=== PATIENT | female | born 1990 | race Caucasian/White ===

== ENCOUNTER 2021-01-20 11:51 | Observation (INO) ==
[2021-01-20] MEDS ORDERED: ALBUTEROL 0.083% NEBU SOLN 3 ML VIAL NEB STA (12:19)
[2021-01-20] MEDS ORDERED: SODIUM CHLORIDE 0.9% 1000ML 1,000 ML IV ONE (12:19)
--- NOTE | 2021-01-20 12:24 | Emergency Department Note ---
Impression & Plan Pulmonary emboli, Shortness of breath, Chest pain ED Provider Note NAME: TRISHA CHAIDEZ AGE: 30 SEX: F : 1990 ARRIVES VIA: Walk-In INFORMANT: Patient ED PROVIDER(S): Kraig Salguero DO CHIEF COMPLAINT: shortness of breath HPI: Patient is a 30-year-old female who presents the ER following being exposed to 3 players that were Covid positive to 30 days ago. She notes her symptoms started this past Friday with a cough shortness of breath and congestion. It is a dry cough. She has a history of bronchitis. She was tested at urgent care initially with a rapid Covid and was retested with a PCR and a multi viral panel which was negative. She has been using steroids which have helped a little bit. She admits to a chest tightness which has been present for the past week. She notes this is improving. She is been using intermittent inhalers. No belly pain nausea vomiting or diarrhea. No dysuria urgency or frequency. She is fully vaccinated. Patient denies swelling of calves, recent trips, history of immobilization or recent surgery, prior history of DVT, hemoptysis, history of malignancy, history of smoking. She does use control. Patient denies diabetes, hypertension, hyperlipidemia, CAD, and history of sudden at a young age. ROS: See above HPI for pertinent positives & negatives. A total of 10 systems reviewed and were otherwise negative. PAST MEDICAL HISTORY:See Below PAST SURGICAL HISTORY:See Below FAMILY HISTORY:See Below SOCIAL HISTORY:See Below HOME MEDICATIONS:See Below ALLERGIES:See Below VITALS:See Below PHYSICAL EXAMINATION: GENERAL: Sitting up in bed, alert, well appearing, well nourished, no distress, non-toxic EYE EXAM: normal conjunctiva. OROPHARYNX: no exudate, no erythema, lips, buccal mucosa, and tongue normal and mucous membranes are moist NECK: supple, no nuchal rigidity, no adenopathy, non-tender LUNGS: Clear to auscultation. Normal chest wall mechanics HEART: no murmurs, S1 normal and S2 normal ABDOMEN: abdomen soft, non-tender, normo-active bowel sounds, no masses, no rebound or guarding. BACK: Back is symmetrical on inspection and there is no deformity, no midline tenderness, no CVA tenderness. SKIN: no rashes and no bruising UPPER EXTREMITIES: upper extremities are grossly normal. LOWER EXTREMITIES: No pitting edema. Calves are equal bilateral. NEURO EXAM: Normal sensorium, cranial nerves II-XII grossly intact, normal speech, no gross weakness of arms, no gross weakness of legs. MEDICAL DECISION MAKING: Patient is a 30-year-old female who presents the ER for shortness of breath with associated above complaints. IV was established blood work was obtained. Labs show mild leukocytosis of 12,000. No significant anemia. D-dimer was elevated 4000. BMP with slightly elevated chloride. LFTs bilirubin was unremarkable. Troponin was negative. Lipase was normal. Covid was negative. CT angio of the chest shows extensive PE. Ordered IV heparin drip. Discussed with Dr. Avila. He ordered an ultrasound and NOAC with thought of sending her home with a low PESI score. Her respiratory rate increased. Ultrasound did show a clot present. Elected to admit the patient. I ordered subcu Lovenox therapeutic dosing. She was updated bedside admitted for further work-up. Triage Nursing notes reviewed. Limited review of prior medical records performed Vital Signs: reviewed and remarkable for HTN Differential diagnosis: Differential diagnoses includes but is not limited to pneumonia, bronchitis, COPD/Asthma exacerbation, pneumothorax, pulmonary embolism, congestive heart failure, acute coronary syndrome ER treatment provided: See below Diagnostics interpreted by me: ECG: Sinus rhythm rate 91 Normal axis No PVCs QTC 435 Cardiac Monitoring: An order was placed for continuous cardiac monitoring. The monitor shows a rate of 95 with sinus rhythm. Laboratory studies: As stated above and show below. Imaging studies: CT angio showed large right-sided PEs Consultation(s): Discussed with Reinaldo Avila for further evaluation Procedures: none Critical Care: I have personally spent 32 minutes of critical care time in the direct management of this patient. This includes bedside care, interpretation of diagnostic studies, and testing, discussion with consultants, patient, and family members, and other required patient management activities. This 32 minutes is in excess of all separately billable procedures. Past Med/Surg History Social History Smoking Status: Never smoker Feels Safe at Home: Yes Allergies Allergies Allergy/AdvReac Type Severity Reaction Status Date / Time latex Allergy Intermediate Contact Unverified 01/20/21 13:49 dermatitis Home Meds Home Medications Medication Instructions Recorded Confirmed albuterol sulfate 90 mcg/actuation 2 puff INHALATION Q4H PRN 01/20/21 01/20/21 aerosol inhaler azithromycin 250 mg tablet 0 mg PO .COMPLEX 01/20/21 01/20/21 clonazepam 0.5 mg tablet 0.25 mg PO TID PRN 01/20/21 01/20/21 dextroamphetamine-amphetamine ER 20 mg PO QAM 01/20/21 01/20/21 20 mg 24hr capsule,extend release (Adderall XR) dextromethorphan-guaifenesin 30 1 tab PO Q12H PRN 01/20/21 01/20/21 mg-600 mg tablet extended [id number] hr (Mucinex DM) escitalopram oxalate 10 mg tablet 10 mg PO DAILY 01/20/21 01/20/21 (Lexapro) escitalopram oxalate 20 mg tablet 20 mg PO DAILY 01/20/21 01/20/21 (Lexapro) levonorgestrel 0.15 mg-ethinyl 1 tab PO DAILY 01/20/21 01/20/21 estradiol 30 mcg tablets,3 mos pack(91) levothyroxine 175 mcg tablet 175 mcg PO DAILY 01/20/21 01/20/21 (Synthroid) prednisone 10 mg tablets in a dose 10 - 40 mg PO DAILY 01/20/21 01/20/21 pack Results & Data (ED) Vital Signs Vital Signs - 24 hr 01/20/21 11:52 01/20/21 12:30 01/20/21 12:39 Pulse Rate 97 H 92 H Pulse Rate [Apical] Respiratory Rate 18 22 Respiratory Effort / Characteristics Non-Labored Respiratory Depth Normal Respiratory Pattern Regular Blood Pressure 150/102 H 133/96 Blood Pressure Mean 118 108 Pulse Oximetry 94 97 97 Oxygen Delivery Method Room Air Room Air Room Air Sepsis Recent Fever Within 48 Hours No Sepsis New/Unexplained Change in Mental Status No Sepsis Action Taken by Nursing No Action Required 01/20/21 12:55 01/20/21 13:00 01/20/21 13:30 Pulse Rate 93 H 94 H Pulse Rate [Apical] 91 H Respiratory Rate 18 20 22 Respiratory Effort / Characteristics Non-Labored Spontaneous Respiratory Depth Respiratory Pattern Blood Pressure 135/99 143/100 H Blood Pressure Mean 111 114 Pulse Oximetry 97 97 97 Oxygen Delivery Method Room Air Room Air Sepsis Recent Fever Within 48 Hours Sepsis New/Unexplained Change in Mental Status Sepsis Action Taken by Nursing 01/20/21 14:00 08/28/21 14:30 Pulse Rate 92 H 89 Pulse Rate [Apical] Respiratory Rate 20 24 Respiratory Effort / Characteristics Respiratory Depth Respiratory Pattern Blood Pressure 147/102 H 114/96 Blood Pressure Mean 117 102 Pulse Oximetry 97 99 Oxygen Delivery Method Room Air Sepsis Recent Fever Within 48 Hours Sepsis New/Unexplained Change in Mental Status Sepsis Action Taken by Nursing Laboratory Data Result diagrams: 01/20/21 12:32 01/20/21 12:32 Lab Results 01/20/21 01/20/21 01/20/21 Range/Units 12:32 12:32 12:32 WBC 12.45 H (4.8-10.8) K/uL RBC 4.79 (4.2-5.4) M/uL Hgb 13.5 (12.0-16.0) g/dL Hct 39.7 (37-47) % MCV 82.9 (80-100) fL MCH 28.2 (25-34) pg MCHC 34.0 (32-36) g/dL RDW Std Deviation 40.7 (36.4-46.3) fL RDW Coeff of Kj 13.4 (11.5-14.5) % Plt Count 231 (130-400) K/uL MPV 11.4 H (7.4-10.4) fL Immature Gran % (Auto) 0.5 % Neut % (Auto) 61.0 % Lymph % (Auto) 30.7 % [place] % (Auto) 4.9 % Eos % (Auto) 2.7 % Baso % (Auto) 0.2 % Neut # (Auto) 7.59 H (1.4-6.5) K/uL Lymph # (Auto) 3.82 H (1.2-3.4) K/uL [place] # (Auto) 0.61 H (0.11-0.59) K/uL Eos # (Auto) 0.34 (0-0.5) K/uL Baso # (Auto) 0.03 (0-0.2) K/uL Immature Gran # (Auto) 0.06 H (0.00-0.02) K/uL APTT 26.1 (21.0-31.0) Seconds PTT Ratio 1.0 D-Dimer 4000 H* (0-500) ug/L FEU Sodium 141 (136-145) mmol/L Potassium 3.5 (3.5-5.1) mmol/L Chloride 112 H (98-107) mmol/L Carbon Dioxide 22 (21-32) mmol/L Anion Gap 7.0 (3-11) BUN 15 (7-18) mg/dl Creatinine 0.65 (0.6-1.2) mg/dl Est Cr Clr Drug Dosing 188.0 ml/min Est GFR ( Amer) 136.2 ml/min Est GFR (Non-Af Amer) 117.5 ml/min BUN/Creatinine Ratio 23.3 H (10-20) Glucose 78 (70-99) mg/dl Calcium 8.3 L (8.5-10.1) mg/dl Total Bilirubin 0.3 (0.2-1) mg/dl AST 7 L (15-37) U/L ALT 18 (12-78) U/L Alkaline Phosphatase 54 (45-117) U/L Troponin I < 0.015 (0-0.045) ng/ml Total Protein 7.0 (6.4-8.2) gm/dl Albumin 3.1 L (3.4-5.0) gm/dl Globulin 3.9 (2.5-4.0) gm/dl Albumin/Globulin Ratio 0.8 L (0.9-2) Lipase 122 (73-393) U/L COVID-19 Eval Order SARS-CoV-2 (PCR) (Negative) 01/20/21 01/20/21 Range/Units 12:40 12:40 WBC (4.8-10.8) K/uL RBC (4.2-5.4) M/uL Hgb (12.0-16.0) g/dL Hct (37-47) % MCV (80-100) fL MCH (25-34) pg MCHC (32-36) g/dL RDW Std Deviation (36.4-46.3) fL RDW Coeff of Kj (11.5-14.5) % Plt Count (130-400) K/uL MPV (7.4-10.4) fL Immature Gran % (Auto) % Neut % (Auto) % Lymph % (Auto) % [place] % (Auto) % Eos % (Auto) % Baso % (Auto) % Neut # (Auto) (1.4-6.5) K/uL Lymph # (Auto) (1.2-3.4) K/uL [place] # (Auto) (0.11-0.59) K/uL Eos # (Auto) (0-0.5) K/uL Baso # (Auto) (0-0.2) K/uL Immature Gran # (Auto) (0.00-0.02) K/uL APTT (21.0-31.0) Seconds PTT Ratio D-Dimer (0-500) ug/L FEU Sodium (136-145) mmol/L Potassium (3.5-5.1) mmol/L Chloride (98-107) mmol/L Carbon Dioxide (21-32) mmol/L Anion Gap (3-11) BUN (7-18) mg/dl Creatinine (0.6-1.2) mg/dl Est Cr Clr Drug Dosing ml/min Est GFR ( Amer) ml/min Est GFR (Non-Af Amer) ml/min BUN/Creatinine Ratio (10-20) Glucose (70-99) mg/dl Calcium (8.5-10.1) mg/dl Total Bilirubin (0.2-1) mg/dl AST (15-37) U/L ALT (12-78) U/L Alkaline Phosphatase (45-117) U/L Troponin I (0-0.045) ng/ml Total Protein (6.4-8.2) gm/dl Albumin (3.4-5.0) gm/dl Globulin (2.5-4.0) gm/dl Albumin/Globulin Ratio (0.9-2) Lipase (73-393) U/L COVID-19 Eval Order Covid19 at [facility] SARS-CoV-2 (PCR) NEGATIVE (Negative) Administered Medications Discontinued Medications Albuterol (Albuterol 0.083% Nebu Soln 3 Ml Vial) 2.5 mg NEB NOW STA Stop: 01/20/21 12:20 Last Admin: 01/20/21 12:54 Dose: 2.5 mg Documented by: [id number] Heparin Sodium (Porcine) (Heparin Sod (Porcine) 1000 Unit/Ml) 1 units IV NOW ONE Stop: 01/20/21 15:08 Last Admin: 01/20/21 17:17 Dose: Not Given Documented by: [id number] Heparin Sodium/Dextrose (Heparin Iv Adult Wt-Based Standard With Bolus Protocol) 1 ea IV NOW STA; Protocol Stop: 01/20/21 14:53 Last Admin: 01/20/21 17:17 Dose: Not Given Documented by: [id number] Sodium Chloride (Nss 1000ml) 1,000 mls @ 999 mls/hr IV .Q1H1M ONE Stop: 01/20/21 13:19 Last Infusion: 01/20/21 13:51 Dose: 0 mls/hr Documented by: [id number] Admin: 01/20/21 12:40 Dose: 999 mls/hr Documented by: [id number] Heparin Sodium/Dextrose (Heparin Sodium/Dextrose) 25,000 units in 500 mls @ 34 mls/hr IV .[id number] [facility]; Protocol Stop: 02/19/21 15:14 Last Admin: 01/20/21 17:17 Dose: Not Given Documented by: [id number] Ioversol (Optiray 320 125ml) 120 ml IV ONCE ONE Stop: 01/20/21 13:55 Last Admin: 01/20/21 13:54 Dose: 120 ml Documented by: [id number] Imaging Data Radiologist's Impression: Chest X-Ray 01/20/21 12:19 SINGLE VIEW CHEST CLINICAL HISTORY: Atypical chest pain. FINDINGS: An AP, portable, upright chest radiograph is obtained. No prior studies are available for comparison at the time of dictation. The cardiomediastinal silhouette is unremarkable. The lungs and pleural spaces are clear. No pneumothorax is seen. The bony thorax is grossly intact. IMPRESSION: No active disease in the chest. ACT 112: Negative or not required by law. Electronically signed by: Deejay Zambrano M.D. 01/20/2021 1:18 PM Chest CTA 01/20/21 13:36 CT ANGIOGRAM OF THE CHEST CLINICAL HISTORY: Dyspnea. Elevated d-dimer. COMPARISON STUDY: Chest x-ray dated 01/20/2021. TECHNIQUE: Following the IV administration of 120 cc of Optiray 320, CT angiogram of the chest was performed from the upper abdomen to the thoracic inlet utilizing the pulmonary embolus protocol. Images are reviewed in the axial, sagittal, and coronal planes. 3-D MIPS images are created and assessed. IV contrast was administered without complication. A dose lowering technique w as utilized adhering to the principles of ALARA. CT DOSE: 844.89 mGy.cm FINDINGS: Thyroid: Imaged portions of the thyroid gland are normal in size and attenuation. Thoracic aorta: The thoracic aorta is normal in caliber and demonstrates standard 3-vessel arch anatomy. No dissection is seen. Pulmonary vasculature: The pulmonary trunk is normal in caliber. There is thro mbus within the distal right main pulmonary artery. This extends into the right upper, right middle, and right lower lobar pulmonary arteries. This is greatest in the right lower lobe where there is extensive segmental and subsegmental thrombus. There is pulmonary embolus within the left lower lobe pulmonary artery. This extends into segmental and subsegmental branches. Segmental and subsegmental pulmonary emboli are also seen within the left upper lobe and lingular pulmonary arteries. Heart: The heart is normal in size and without pericardial effusion. Lungs and pleural spaces: There is no airspace consolidation or pleural effusion. The trachea and central airways are clear. Mediastinum: There is no mediastinal lymphadenopathy. Jinny: Clear. Axillae: There is no axillary lymphadenopathy. Upper abdomen: There is a small hiatal hernia. Partially visualized upper abdominal viscera is otherwise within normal limits. Skeletal structures: No lytic or blastic bony lesions are seen. IMPRESSION: 1. Extensive bilateral pulmonary embolus as above. 2. There is no airspace consolidation or pleural effusion. ACT 112: Negative or not required by law. Electronically signed by: Deejay Zambrano M.D. 01/20/2021 3:18 PM Venous Doppler Study 01/20/21 15:15 ULTRASOUND BILATERAL LOWER EXTREMITY VENOUS CLINICAL HISTORY: Pulmonary embolus COMPARISON STUDY: No priors. TECHNIQUE: Real-time, grayscale, and color Doppler sonography of the deep veins of the right and left lower extremity was performed from the inguinal crease to the calf. Compression and augmentation were utilized. FINDINGS: Right lower extremity: There is nonocclusive and acute appearing deep venous thrombosis identified in the right popliteal vein. The common femoral and superficial femoral veins are patent and normally compressible. The greater saphenous vein and the profunda femoris vein at the junction with the common femoral vein are clear. The visualized calf veins are patent. Left lower extremity: There is no sonographic evidence of deep venous thrombosis in the left lower extremity. The common femoral, superficial femoral, and popliteal veins are patent and normally compressible. The greater saphenous vein and the profunda femoris vein at the junction with the common femoral vein are clear. The visualized calf veins are patent. IMPRESSION: 1. There is nonocclusive and acute appearing deep venous thrombosis identified in the right popliteal vein. 2. The remaining deep veins of the right lower extremity are patent and normally compressible. 3. There is no sonographic evidence of deep venous thrombosis in the left lower extremity. ACT 112: Negative or not required by law. Electronically signed by: Deejay Zambrano M.D. 01/20/2021 4:21 PM Discharge Plan Visit Data Chief Complaint: Shortness of Breath/Dyspnea Stated Complaint: COVID EXP/NEG COV/TEST FULLY VAXED/SOB ED Provider: Kraig Salguero Discharge Problem: Pulmonary emboli, Shortness of breath, Chest pain Forms Stand Alone Forms: [facility] Prescriptions Prescriptions: No Action levothyroxine [Synthroid] 175 mcg Tablet 175 mcg PO DAILY RF: 0 azithromycin 250 mg Tablet 0 mg PO .COMPLEX RF: 0 clonazepam 0.5 mg Tablet 0.25 mg PO TID PRN (Reason: Anxiety) RF: 0 prednisone 10 mg Tablets,Dose Pack 10 - 40 mg PO DAILY RF: 0 dextroamphetamine-amphetamine [Adderall XR] 20 mg Capsule,Extended Release 24hr 20 mg PO QAM RF: 0 Mucinex DM 30-600 mg Tablet Extended Release 12 Hr 1 tab PO Q12H PRN (Reason: Mucus Relief) RF: 0 albuterol sulfate 90 mcg/actuation Hfa Aerosol Inhaler 2 puff INHALATION Q4H PRN (Reason: Wheezing) RF: 0 escitalopram oxalate [Lexapro] 10 mg Tablet 10 mg PO DAILY RF: 0 escitalopram oxalate [Lexapro] 20 mg Tablet 20 mg PO DAILY RF: 0 levonorgestrel-ethinyl estrad [Seasonale (91)] 0.15 mg-30 mcg (91) Tablets,Dose Pack,3 Month 1 tab PO DAILY RF: 0 Referrals Referrals: PCP,NO [Primary Care Provider] -
[2021-01-20 12:52] LABS: Basophils # (auto) 0.03 K/uL (0-0.2); Basophils % (auto) 0.2 %; Eosinophils # (auto) 0.34 K/uL (0-0.5); Eosinophils % (auto) 2.7 %; Hematocrit (blood only) 39.7 % (37-47); Hemoglobin 13.5 g/dL (12.0-16.0); Immature Granulocytes # (auto) 0.06 K/uL (0.00-0.02); Immature Granulocytes % (auto) 0.5 %; Lymphocytes # (auto) 3.82 K/uL (1.2-3.4); Lymphocytes % (auto) 30.7 %; Mean Corpuscular Hemoglobin 28.2 pg (25-34); Mean Corpuscular Volume 82.9 fL (80-100); Mean Platelet Volume 11.4 fL (7.4-10.4); Monocytes # (auto) 0.61 K/uL (0.11-0.59); Monocytes % (auto) 4.9 %; Neutrophils # (auto) 7.59 K/uL (1.4-6.5); Platelet Count 231 K/uL (130-400); RDW Coefficient of Variation 13.4 % (11.5-14.5); RDW Standard Deviation 40.7 fL (36.4-46.3); Red Blood Count 4.79 M/uL (4.2-5.4); White Blood Count 12.45 K/uL (4.8-10.8)
[2021-01-20 13:01] LABS: Partial Thromboplastin Time 26.1 Seconds (21.0-31.0)
[2021-01-20 13:08] LABS: Alanine Aminotransferase 18 U/L (12-78); Albumin Level 3.1 gm/dl (3.4-5.0); Aspartate Aminotransferase 7 U/L (15-37); BUN Creatinine Ratio 23.3 (10-20); Blood Urea Nitrogen 15 mg/dl (7-18); Calcium 8.3 mg/dl (8.5-10.1); Carbon Dioxide 22 mmol/L (21-32); Chloride 112 mmol/L (98-107); Est GFR (African American) 136.2 ml/min; Est GFR (Non-African American) 117.5 ml/min; Glucose 78 mg/dl (70-99); Lipase 122 U/L (73-393); Potassium 3.5 mmol/L (3.5-5.1); Sodium 141 mmol/L (136-145)
[2021-01-20 13:13] LABS: Albumin Globulin Ratio 0.8 (0.9-2); Alkaline Phosphatase 54 U/L (45-117); Bilirubin,Total 0.3 mg/dl (0.2-1); D Dimer 4000 ug/L FEU (0-500); Globulin 3.9 gm/dl (2.5-4.0); Troponin I < 0.015 ng/ml (0-0.045)
--- NOTE | 2021-01-20 13:19 | XRay Report ---
SINGLE VIEW CHEST CLINICAL HISTORY: Atypical chest pain. FINDINGS: An AP, portable, upright chest radiograph is obtained. No prior studies are available for c omparison at the time of dictation. The cardiomediastinal silhouette is unremarkable. The lungs and p leural spaces are clear. No pneumothorax is seen. The bony thorax is grossly intact. IMPRESSION: No active disease in the chest. ACT 112: Negative or not required by law. Electronically signed by: Deejay Zambrano M.D. 01/20/2021 1:18 PM
[2021-01-20] MEDS ORDERED: OPTIRAY 320 125ml IV ONE (13:54)
[2021-01-20] MEDS ORDERED: Heparin IV Adult Wt-Based Standard WITH Bolus Protocol IV STA (14:52)
[2021-01-20] MEDS: HEPARIN SODIUM/DEXTROSE 25,000 UNITS/500 ML BAG IV SCH ×2 (15:11→17:17)
[2021-01-20] MEDS: HEPARIN SOD (PORCINE) 1000 UNIT/ML IV ONE ×2 (15:11→17:17)
--- NOTE | 2021-01-20 15:20 | CT Scan Report ---
CT ANGIOGRAM OF THE CHEST CLINICAL HISTORY: Dyspnea. Elevated d-dimer. COMPARISON STUDY: Chest x-ray dated 01/20/2021. TECHNIQUE: Following the IV administration of 120 cc of Optiray 320, CT angiogram of the chest was pe rformed from the upper abdomen to the thoracic inlet utilizing the pulmonary embolus protocol. Images are reviewed in the axial, sagittal, and coronal planes. 3-D MIPS images are created and assessed. I V contrast was administered without complication. A dose lowering technique was utilized adhering to the principles of ALARA. CT DOSE: 844.89 mGy.cm FINDINGS: Thyroid: Imaged portions of the thyroid gland are normal in size and attenuation. Thoracic aorta: The thoracic aorta is normal in caliber and demonstrates standard 3-vessel arch anato my. No dissection is seen. Pulmonary vasculature: The pulmonary trunk is normal in caliber. There is thrombus within the distal right main pulmonary artery. This extends into the right upper, right middle, and right lower lobar p ulmonary arteries. This is greatest in the right lower lobe where there is extensive segmental and hunter bsegmental thrombus. There is pulmonary embolus within the left lower lobe pulmonary artery. This ext ends into segmental and subsegmental branches. Segmental and subsegmental pulmonary emboli are also s een within the left upper lobe and lingular pulmonary arteries. Heart: The heart is normal in size and without pericardial effusion. Lungs and pleural spaces: There is no airspace consolidation or pleural effusion. The trachea and jp tral airways are clear. Mediastinum: There is no mediastinal lymphadenopathy. Jinny: Clear. Axillae: There is no axillary lymphadenopathy. Upper abdomen: There is a small hiatal hernia. Partially visualized upper abdominal viscera is otherw ise within normal limits. Skeletal structures: No lytic or blastic bony lesions are seen. IMPRESSION: 1. Extensive bilateral pulmonary embolus as above. 2. There is no airspace consolidation or pleural effusion. ACT 112: Negative or not required by law. Electronically signed by: Deejay Zambrano M.D. 01/20/2021 3:18 PM
--- NOTE | 2021-01-20 15:25 | Hospitalist Consultation ---
Date of Consultation January 20, 2021 Assessment & Plan (1) Pulmonary emboli: 30 y/o F hx hypothyroidism, hydradenitis, PTSD/depression, ADD, family history of hypercoagulable disorder. The pt reports SOB starting 6 days prior. She had exposure to COVID the prior week and thought she was developing COVID. She tested negative at an urgent care center. She is fully vaccinated. She presented to the ER as her shortness of breath persisted. She was not hypoxic or tachycardic, however, initial labs returned with a markedly elevated dimer. She again tested negative for COVID. She was sent for a CTA which demonstrated thrombus within the distal right main pulmonary artery, extending into the right upper, right middle, and right lower lobar pulmonary arteries. There is pulmonary embolus within the left lower lobe pulmonary artery extending into segmental and subsegmental branches. 1) PE - she will be placed on Lovenox. She can likely transition to Eliquis for DC AM. We would like to determine if she is desaturating with activity or sleep as she may need home 02. The pt does not meet PESI score for admission, however, her breathing is considerably labored, she has a substantial clot burden and stated that she was desaturating at home with activity throughout the week. She can pursue a hypoercoag workup in the outpt setting. She is advised to stop her both control which contains estrogen. 2) Hypothyroidism - cont Synthroid 3) PTSD/depression - cont Lexapro, Clonazepam 4) ADD - we can hold her amphetamine in the hospital Full code - full-dose Lovenox Total time for this admit including review of labs, meds, imaging, records - discussion with pt and ER attending - 45 min Please consider the above an admission note as the pt was ultimately admitted History of Present Illness Reason for Consultation: PE Requesting Physician: ER Attending Physician: Jose M History of Present Illness 30 y/o F hx hypothyroidism, hydradenitis, PTSD/depression, ADD, family history of hypercoagulable disorder. The pt reports SOB starting 6 days prior. She had exposure to COVID the prior week and thought she was developing COVID. She tested negative at an urgent care center. She is fully vaccinated. She presented to the ER as her shortness of breath persisted. She was not hypoxic or tachycardic, however, initial labs returned with a markedly elevated dimer. She again tested negative for COVID. She was sent for a CTA which demonstrated thrombus within the distal right main pulmonary artery, extending into the right upper, right middle, and right lower lobar pulmonary arteries. There is pulmonary embolus within the left lower lobe pulmonary artery extending into segmental and subsegmental branches. An EKG does not support strain. PMH: 1) Hypothyroidism 2) Hydradenitis 3) PTSD 4) Depression 5) ADD 6) Frequent bronchitis Surgical: Denies Social: Rarely drinks alcohol. 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 Family: Father due to alcoholism complications Mother has HTN, DM Paternal uncle and paternal grandfather with hypercoagulable disorder which are unidentified. Allergies Allergy/AdvReac Type Severity Reaction Status Date / Time latex Allergy Intermediate Contact Unverified 01/20/21 13:49 dermatitis Home Medications Medication Instructions Recorded Confirmed Type albuterol sulfate 90 mcg/actuation 2 puff INHALATION Q4H PRN 01/20/21 01/20/21 History aerosol inhaler azithromycin 250 mg tablet 0 mg PO .COMPLEX 01/20/21 01/20/21 History clonazepam 0.5 mg tablet 0.25 mg PO TID PRN 01/20/21 01/20/21 History dextroamphetamine-amphetamine ER 20 mg PO QAM 01/20/21 01/20/21 History 20 mg 24hr capsule,extend release (Adderall XR) dextromethorphan-guaifenesin 30 1 tab PO Q12H PRN 01/20/21 01/20/21 History mg-600 mg tablet extended [id number] hr (Mucinex DM) escitalopram oxalate 10 mg tablet 10 mg PO DAILY 01/20/21 01/20/21 History (Lexapro) escitalopram oxalate 20 mg tablet 20 mg PO DAILY 01/20/21 01/20/21 History (Lexapro) levonorgestrel 0.15 mg-ethinyl 1 tab PO DAILY 01/20/21 01/20/21 History estradiol 30 mcg tablets,3 mos pack(91) levothyroxine 175 mcg tablet 175 mcg PO DAILY 01/20/21 01/20/21 History (Synthroid) prednisone 10 mg tablets in a dose 10 - 40 mg PO DAILY 01/20/21 01/20/21 History pack Patient History Social History Smoking Status: Never smoker Feels Safe at Home: Yes Review of Systems Review of Systems: Gen: Denies fevers, night sweats, rigors, fatigue, malaise, weight loss/gain ENT: Denies congestion, throat pain, hearing loss Eyes: Denies acute visual changes CV: Denies CP, palpitations Pulmonary: Shortness of breath x 6 days GI: Denies N/V, diarrhea, constipation Neuro: Denies acute or unilateral weakness, acute gait impairment, headache or acute visual changes Musculoskeletal: Denies joint pain, inflammation Endocrine: Denies polydipsia, polyuria Skin: Denies acute rashes or ulcers Physical Exam Physical Exam: General: Pleasant, young F, AAO x 3, no distress but breathing is visibly labored ENT: No erythema or exudates, no thrush Eyes: NAKUL, EOMI Head and neck: Normocephalic, atraumatic, No JVD, neck is supple. Chest/heart: Nontender, S1,2, RRR, no murmurs, no gallops Lungs: CTAB, no wheezing or crackles Abdomen: Nontender, nondistended, BS+ Neuro: AAO x 3, speech is clear, no unilateral weakness or loss of sensation, coordination intact Musculoskeletal: No joint inflammation, muscle tenderness, FROM Skin: No acute rashes or ulcers Extremities: No clubbing, cyanosis, edema Results & Data Results & Data ([facility]) Vital Signs (Past 12 Hours) Vital Signs Pulse Pulse Resp BP Pulse Ox 01/20/21 14:30 89 24 114/96 99 01/20/21 14:00 92 H 20 147/102 H 97 01/20/21 13:30 94 H 22 143/100 H 97 01/20/21 13:00 93 H 20 135/99 97 01/20/21 12:55 91 H 18 97 01/20/21 12:39 92 H 22 133/96 97 01/20/21 12:30 97 01/20/21 11:52 97 H 18 150/102 H 94 Diagnostic Findings CTA: Thrombus within the distal right main pulmonary artery, extending into the right upper, right middle, and right lower lobar pulmonary arteries. There is pulmonary embolus within the left lower lobe pulmonary artery extending into segmental and subsegmental branches. Doppler: R popliteal DVT PG Care Time/CCT Total # of Minutes Spent Total Time Spent with Patient: Total time spent is greater than 50% in coordination of care (as documented) at patient's floor/unit and/or counseling patient: Coding Level of Care Code 75931 Inpt Consult Level 3 Diagnoses Pulmonary emboli I26.99
[2021-01-20] MEDS ORDERED: APIXABAN 5 MG TABLET PO STA (15:35)
--- NOTE | 2021-01-20 16:22 | Ultrasound Report ---
ULTRASOUND BILATERAL LOWER EXTREMITY VENOUS CLINICAL HISTORY: Pulmonary embolus COMPARISON STUDY: No priors. TECHNIQUE: Real-time, grayscale, and color Doppler sonography of the deep veins of the right and left lower extremity was performed from the inguinal crease to the calf. Compression and augmentation wer e utilized. FINDINGS: Right lower extremity: There is nonocclusive and acute appearing deep venous thrombosis identified in the right popliteal vein. The common femoral and superficial femoral veins are patent and normally c ompressible. The greater saphenous vein and the profunda femoris vein at the junction with the common femoral vein are clear. The visualized calf veins are patent. Left lower extremity: There is no sonographic evidence of deep venous thrombosis in the left lower ex tremity. The common femoral, superficial femoral, and popliteal veins are patent and normally tawny sible. The greater saphenous vein and the profunda femoris vein at the junction with the common femor al vein are clear. The visualized calf veins are patent. IMPRESSION: 1. There is nonocclusive and acute appearing deep venous thrombosis identified in the right popliteal vein. 2. The remaining deep veins of the right lower extremity are patent and normally compressible. 3. There is no sonographic evidence of deep venous thrombosis in the left lower extremity. ACT 112: Negative or not required by law. Electronically signed by: Deejay Zambrano M.D. 01/20/2021 4:21 PM
[2021-01-20] MEDS ORDERED: ENOXAPARIN 1 MG/KG SC STA (17:02)
[2021-01-20] MEDS ORDERED: ENOXAPARIN 150 MG/ML SYR SQ ONE (17:30)
[2021-01-20] MEDS ORDERED: clonazePAM 0.25 MG TAB PO PRN (18:59)
[2021-01-20] MEDS ORDERED: ALBUTEROL HFA 8 GM INHALER INH PRN (18:59)
[2021-01-20] MEDS ORDERED: ACETAMINOPHEN 325 MG TAB PO PRN (18:59)
[2021-01-21] MEDS: ENOXAPARIN 150 MG/ML SYR SQ SCH ×2 (06:23→16:55)
[2021-01-21] MEDS ORDERED: LEVOTHYROXINE SODIUM 175 MCG TABLET PO SCH (06:30)
[2021-01-21] MEDS ORDERED: ESCITALOPRAM OXALATE 10 MG TAB PO SCH (09:00)
[2021-01-21] MEDS ORDERED: ESCITALOPRAM OXALATE 20 MG TAB PO SCH (09:00)
[2021-01-21 09:35] LABS: Basophils # (auto) 0.05 K/uL (0-0.2); Basophils % (auto) 0.4 %; Eosinophils # (auto) 1.08 K/uL (0-0.5); Eosinophils % (auto) 9.3 %; Hematocrit (blood only) 43.1 % (37-47); Hemoglobin 14.6 g/dL (12.0-16.0); Immature Granulocytes # (auto) 0.06 K/uL (0.00-0.02); Immature Granulocytes % (auto) 0.5 %; Lymphocytes # (auto) 3.55 K/uL (1.2-3.4); Lymphocytes % (auto) 30.6 %; Mean Corpuscular Hemoglobin 28.5 pg (25-34); Mean Corpuscular Hgb Conc 33.9 g/dL (32-36); Mean Platelet Volume 11.4 fL (7.4-10.4); Monocytes # (auto) 0.45 K/uL (0.11-0.59); Monocytes % (auto) 3.9 %; Neutrophils % (auto) 55.3 %; Platelet Count 273 K/uL (130-400); RDW Coefficient of Variation 13.6 % (11.5-14.5); RDW Standard Deviation 41.5 fL (36.4-46.3); Red Blood Count 5.13 M/uL (4.2-5.4); White Blood Count 11.59 K/uL (4.8-10.8)
[2021-01-21 09:59] LABS: BUN Creatinine Ratio 12.6 (10-20); Calcium 9.1 mg/dl (8.5-10.1); Creatinine Clr Calc Pharmacy 135.1 ml/min; Est GFR (African American) 96.8 ml/min; Est GFR (Non-African American) 83.5 ml/min; Potassium 3.6 mmol/L (3.5-5.1)
[2021-01-21 10:10] LABS: Thyroid Stimulating Hormone 1.99 uIu/ml (0.300-4.500)
--- NOTE | 2021-01-21 16:56 | Discharge Summary ---
Date of Service January 21, 2021 Admission HPI Per Admitting Provider History of Present Illness 30 y/o F hx hypothyroidism, hydradenitis, PTSD/depression, ADD, family history of hypercoagulable disorder. The pt reports SOB starting 6 days prior. She had exposure to COVID the prior week and thought she was developing COVID. She tested negative at an urgent care center. She is fully vaccinated. She presented to the ER as her shortness of breath persisted. She was not hypoxic or tachycardic, however, initial labs returned with a markedly elevated dimer. She again tested negative for COVID. She was sent for a CTA which demonstrated thrombus within the distal right main pulmonary artery, extending into the right upper, right middle, and right lower lobar pulmonary arteries. There is pulmonary embolus within the left lower lobe pulmonary artery extending into segmental and subsegmental branches. An EKG does not support strain. PMH: 1) Hypothyroidism 2) Hydradenitis 3) PTSD 4) Depression 5) ADD 6) Frequent bronchitis Surgical: Denies Social: Rarely drinks alcohol. 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 Family: Father due to alcoholism complications Mother has HTN, DM Paternal uncle and paternal grandfather with hypercoagulable disorder which are unidentified. Principal Diagnosis Acute pulmonary embolism, DVT Discharge Exam Constitutional WD/WN, vitals as above + obese Eyes + anicteric sclerae ENMT external ear and nose normal, oropharynx normal Neck trachea midline, no thyromegaly Respiratory normal respiratory effort, lungs clear to auscultation Cardiovascular RRR, no murmur, no edema Chest (Breasts) Chest: normal inspection of chest Gastrointestinal (Abdomen) normal bowel sounds, soft, nontender, no hepatosplenomegaly Musculoskeletal Extremities: extremities normal to inspection; no cyanosis and no clubbing Skin no rashes, warm and dry Neurologic moves all extremities and awake; no focal motor deficits Psychiatric A+Ox3, euthymic affect Lymphatic no lymphedema Discharge Data Allergies Allergy/AdvReac Type Severity Reaction Status Date / Time latex Allergy Intermediate Contact Unverified 01/20/21 13:49 dermatitis Consultations 01/20/21 15:09 ED Decision to Admit Stat Ordered Studies 01/20/21 13:36 CT angio chest PE protocol Stat 01/20/21 15:15 US venous doppler LE BI Stat Chest X-Ray 01/20/21 12:19 SINGLE VIEW CHEST CLINICAL HISTORY: Atypical chest pain. FINDINGS: An AP, portable, upright chest radiograph is obtained. No prior studies are available for comparison at the time of dictation. The cardiomediastinal silhouette is unremarkable. The lungs and pleural spaces are clear. No pneumothorax is seen. The bony thorax is grossly intact. IMPRESSION: No active disease in the chest. ACT 112: Negative or not required by law. Electronically signed by: Deejay Zambrano M.D. 01/20/2021 1:18 PM Chest CTA 01/20/21 13:36 CT ANGIOGRAM OF THE CHEST CLINICAL HISTORY: Dyspnea. Elevated d-dimer. COMPARISON STUDY: Chest x-ray dated 01/20/2021. TECHNIQUE: Following the IV administration of 120 cc of Optiray 320, CT angiogram of the chest was performed from the upper abdomen to the thoracic inlet utilizing the pulmonary embolus protocol. Images are reviewed in the axial, sagittal, and coronal planes. 3-D MIPS images are created and assessed. IV contrast was administered without complication. A dose lowering technique was utilized adhering to the principles of ALARA. CT DOSE: 844.89 mGy.cm FINDINGS: Thyroid: Imaged portions of the thyroid gland are normal in size and attenua tion. Thoracic aorta: The thoracic aorta is normal in caliber and demonstrates standard 3-vessel arch anatomy. No dissection is seen. Pulmonary vasculature: The pulmonary trunk is normal in caliber. There is thrombus within the distal right main pulmonary artery. This extends into the right upper, right middle, and right lower lobar pulmonary arteries. This is greatest in the right lower lobe where there is extensive segmental and subsegmental thrombus. There is pulmonary embolus within the left lower lobe pulmonary artery. This extends into segmental and subsegmental branches. Segmental and subsegmental pulmonary emboli are also seen within the left upper lobe and lingular pulmonary arteries. Heart: The heart is normal in size and without pericardial effusion. Lungs and pleural spaces: There is no airspace consolidation or pleural effusion. The trachea and central airways are clear. Mediastinum: There is no mediastinal lymphadenopathy. Jinny: Clear. Axillae: There is no axillary lymphadenopathy. Upper abdomen: There is a small hiatal hernia. Partially visualized upper abdominal viscera is otherwise within normal limits. Skeletal structures: No lytic or blastic bony lesions are seen. IMPRESSION: 1. Extensive bilateral pulmonary embolus as above. 2. There is no airspace consolidation or pleural effusion. ACT 112: Negative or not required by law. Electronically signed by: Deeajy Zambrano M.D. 01/20/2021 3:18 PM Venous Doppler Study 01/20/21 15:15 ULTRASOUND BILATERAL LOWER EXTREMITY VENOUS CLINICAL HISTORY: Pulmonary embolus COMPARISON STUDY: No priors. TECHNIQUE: Real-time, grayscale, and color Doppler sonography of the deep veins of the right and left lower extremity was performed from the inguinal crease to the calf. Compression and augmentation were utilized. FINDINGS: Right lower extremity: There is nonocclusive and acute appearing deep venous thrombosis identified in the right popliteal vein. The common femoral and superficial femoral veins are patent and normally compressible. The greater saphenous vein and the profunda femoris vein at the junction with the common femoral vein are clear. The visualized calf veins are patent. Left lower extremity: There is no sonographic evidence of deep venous thrombosis in the left lower extremity. The common femoral, superficial femoral, and popliteal veins are patent and normally compressible. The greater saphenous vein and the profunda femoris vein at the junction with the common femoral vein are clear. The visualized calf veins are patent. IMPRESSION: 1. There is nonocclusive and acute appearing deep venous thrombosis identified in the right popliteal vein. 2. The remaining deep veins of the right lower extremity are patent and normally compressible. 3. There is no sonographic evidence of deep venous thrombosis in the left lower extremity. ACT 112: Negative or not required by law. Electronically signed by: Deejay Zambrano M.D. 01/20/2021 4:21 PM Hospital Course (1) Pulmonary emboli: 30 y/o F hx hypothyroidism, hydradenitis, PTSD/depression, ADD, family history of hypercoagulable disorder. The pt reports SOB starting 6 days prior. She had exposure to COVID the prior week and thought she was developing COVID. She tested negative at an urgent care center. She is fully vaccinated. She presented to the ER as her shortness of breath persisted. She was not hypoxic or tachycardic, however, initial labs returned with a markedly elevated dimer. She again tested negative for COVID. She was sent for a CTA which demonstrated thrombus within the distal right main pulmonary artery, extending into the right upper, right middle, and right lower lobar pulmonary arteries. There is pulmonary embolus within the left lower lobe pulmonary artery extending into segmental and subsegmental branches. She has been traveling a lot by car recently from [place] to the [facility] due to a recent move. Each round trip drive is approximately 5 hours. She is also taking combined OCPs and is obese. There is a family history of an unknown clotting disorder in her paternal Uncle and paternal grandfather. Her father suddenly at age 42 after a prolonged hospitalization for what sounds like multisystem organ failure, but also was a heavy EtOH abuser. She has numerous reasons for development of a VTE. Hypercoagulable panel drawn with exception of Antithrombin III and Lupus anticoag as she was already on Lovenox at time labs drawn. She was doing well, not hypoxic, not tachycardic, BPs stable, not dyspneic with ambulation at least of short distances in hospital at time of discharge. She will continue on injections bid of Lovenox upon discharge. She hsould remaon on Lovenox until hypercoag w/u returns. Eliquis contraindicated if has antiphospholipid antibody syndrome. COuld transition to ELiquis then if that is neg. Consider outpt f/u with [facility] to discuss hypercoag results and determine if needs 6 months of treatment vs lifelong anticoagulation. She is advised to stop her both control which contains estrogen. She does not require a backup method of contraception as she is not sexually active with men. She does however have a h/o menorrhagia-this could be treated with Mirena IUD even in setting of VTE. Recommend she f/u with [facility] closely for this as she may experience heavy bleeding with being on anticoagulation now regardless. Wear compression stockings with long car rides Stable for dc to home today (2) Acute DVT (deep venous thrombosis): as above, right popliteal DVT (3) Anxiety: - cont Lexapro, Clonazepam (4) ADD (attention deficit disorder): continue home meds (5) Obesity (BMI 30-39.9): BMI 39.3 would greatly benefit from weight loss program (6) Hypothyroidism: TSH here normal continue home SYnthroid (7) Family history of hypercoagulability: as above Dispo-dc to home Total Time Total Time Spent Total Time Spent (In Minutes): 40 min Discharge Plan Discharge Items Patient Disposition: Home - Self-Care Reason For Visit: PE Discharge Diagnosis: DVT/Pulmonary Embolism Condition on Discharge: Fair Activity: As commented below Bathing: No limitations Exercise/Sports: Gradually increase as tolerated Non-emergency contact: Primary Care Provider Call non-emergency contact if: you have any medication questions, your symptoms worsen and you have a fever Follow-up/Referrals: Oscar Mancia V., [Physician] - (If you desire hematology follow up, please schedule an appointment with Dr. Mancia.) Kimberly Pierre DO [Physician] - (Please call to schedule a new patient hospital follow up appointment.) PCP,NO [Primary Care Provider] - Diet: Regular Addtl Attending Provider Instructions: You were admitted and found to have blood clots in your lungs as well as a blood clot in your right leg. You will need to take blood thinners for at least 6 months. For now, you should take Lovenox injections twice daily. Once the results of your hypercoagulable workup return, there is a chance you could be transitioned to Eliquis instead (as long as you don't have antiphospholipid antibody syndrome) as we discussed. Please follow up with your new PCP to discuss all of your results once they become available. You should STOP taking your control pill, and use compression stockings when driving long distances. If you have any issues with bleeding i.e. coughing up blood, vomiting blood, blood in your stool or urine, or suffer a trauma and have bleeding, please come to the hospital right away. Pending Studies at Discharge: Yes Stand-Alone Forms: My [facility] Medications and DC Order Prescriptions: New enoxaparin [Lovenox] 150 mg/mL Syringe 130 mg subcut Q12H 14 Days Qty: 24.268 RF: 1 Continued levothyroxine [Synthroid] 175 mcg Tablet 175 mcg PO DAILY RF: 0 clonazepam 0.5 mg Tablet 0.25 mg PO TID PRN (Reason: Anxiety) RF: 0 dextroamphetamine-amphetamine [Adderall XR] 20 mg Capsule,Extended Release 24hr 20 mg PO QAM RF: 0 albuterol sulfate 90 mcg/actuation Hfa Aerosol Inhaler 2 puff INHALATION Q4H PRN (Reason: Wheezing) RF: 0 escitalopram oxalate [Lexapro] 10 mg Tablet 10 mg PO DAILY RF: 0 escitalopram oxalate [Lexapro] 20 mg Tablet 20 mg PO DAILY RF: 0 Discontinued azithromycin 250 mg Tablet 0 mg PO .COMPLEX RF: 0 prednisone 10 mg Tablets,Dose Pack 10 - 40 mg PO DAILY RF: 0 Mucinex DM 30-600 mg Tablet Extended Release 12 Hr 1 tab PO Q12H PRN (Reason: Mucus Relief) RF: 0 levonorgestrel-ethinyl estrad [Seasonale (91)] 0.15 mg-30 mcg (91) Tablets,Dose Pack,3 Month 1 tab PO DAILY RF: 0 Discharge Orders: Discharge Order (Routine); Ordered 01/21/21 Ordered By: Mary Smalls Admission Data Admit Date/Time: 01/20/21 17:55 Attending Provider: Mary Smalls Admit Provider: Reinaldo Avila Primary Care Provider: PCP,KATIE Other Providers: Reinaldo Avila Other Interventions: Discharge Summary Assessment (RN) Last Done: 01/21/21 17:11 Coding Level of Care Code D/C DAY MANAGEMENT >30 MINS Diagnoses Pulmonary emboli I26.99 Acute cor pulmonale presence: unspecified Chronicity: acute Pulmonary embolism type: other Anxiety F41.9 ADD (attention deficit disorder) F98.8 Obesity (BMI 30-39.9) E66.9 Hypothyroidism E03.9 Family history of hypercoagulability Z83.2 Acute DVT (deep venous thrombosis) I82.409
--- NOTE | 2021-01-21 22:40 | Electrocardiogram Report ---
Test Reason : Blood Pressure : / mmHG Vent. Rate : 091 BPM Atrial Rate : 091 BPM P-R Int : 140 ms QRS Dur : 082 ms QT Int : 354 ms P-R-T Axes : 029 019 037 degrees QTc Int : 435 ms Normal sinus rhythm Possible Left atrial enlargement Borderline ECG No previous ECGs available Confirmed by Obi Palafox ([id number]) on 01/21/2021 10:39:56 PM Referred By: Confirmed By:Obi Palafox
[2021-01-22] MEDS ORDERED: ENOXAPARIN 150 MG/ML SYR SQ SCH (04:00)
[2021-01-25 22:56] LABS: Anti Cardiolipin Ab IgG <2.0 GPL-U/mL; Anti Cardiolipin Ab IgM <2.0 MPL-U/mL; B2 Glycoprotein IgG <2.0 U/mL (<20.0); B2 Glycoprotein IgM <2.0 U/mL (<20.0); Protein S Functional(Activity) 114 % (60-140)
== END 2021-01-21 18:27 | disposition home or self-care (01) ==
LOC: ED 11:51 → 2S 17:55 → SUATTDRO 17:55 → INTOOBSV 17:55 → 2S 18:38